=== PATIENT | male | born 1945 | race Caucasian/White ===

== ENCOUNTER 2023-10-17 07:00 | Day surgery (SDC) | payer OTHER ==
[2023-10-13 13:17] LABS: Absolute Eosinophils 0.1 K/uL (0-0.5); Absolute Lymphocytes (CBC) 2.4 K/uL (0.7-4.9); Absolute Monocytes 0.5 K/uL (0.1-1.3); Absolute Neutrophil 2.4 K/uL (1.8-8.0); Basophils % 0.8 % (0-1.3); Eosinophils % 2.2 % (0-4.4); Hematocrit 38.8 % (39.6-49.0); Hemoglobin 12.7 g/dL (13.6-17.9); Lymphocytes % 43.7 % (15.3-44.8); MCH 32.3 pg (27.0-35.0); MCHC 32.9 g/dL (32.0-36.0); MCV 98.2 fL (80-100); MPV 7.3 fL (7.6-11.3); Monocytes % 8.7 % (3.3-12.3); Neutrophils % 44.6 % (41.7-73.7); Platelets 224 thou/uL (152-406); RBC Red Blood Cell Count 3.95 M/uL (4.33-5.43); Red Cell Distribution Width 13.8 % (12.1-15.2)
[2023-10-13 13:30] LABS: Anion Gap 9.1 mEq/L (5.0-15.0); PT Prothrombin Time 11.5 SECONDS (9.4-12.5); PTT, Activated Partial Thromb 32.5 SECONDS (24.3-36.9); Potassium 5.1 mEq/L (3.5-5.1); Protime INR 1.03
--- NOTE | 2023-10-13 18:18 | RAD REPORT ---
EXAM DESCRIPTION: Gloriat Pa And Lat (2 Views)10/13/2023 1:16 pm CLINICAL HISTORY: Pre op pending heart catheterization. Diabetes and hypertension COMPARISON: No comparisons TECHNIQUE: PA and lateral views of the chest. FINDINGS: The lungs are clear. No pneumothorax or effusion. The cardiomediastinal contours are unre markable. IMPRESSION: No acute cardiopulmonary process.
--- NOTE | 2023-10-16 17:08 | EKG ---
Test Date: 2023-10-13 Test Time: 12:57:10 Cloth Examiner Hand: MATTHEW MEASUREMENT RESULTS: Intervals: Rate: 46 MO: 184 QRSD: 92 QT: 422 QTc: 369 [place]: P: 30 MO: 184 QRS: 27 T: -18 INTERPRETIVE STATEMENTS: Marked sinus bradycardia Nonspecific T wave abnormality Abnormal ECG No previous ECG available for comparison Electronically Signed On 10-16-23 16:59:41 CDT by Jerry Oconnor
[2023-10-17] MEDS ORDERED: NA CHLORIDE 0.9% 500 ML ONE (07:11)
[2023-10-17] MEDS ORDERED: MIDAZOLAM HCL 2 MG/2 ML INJ ONE (07:17)
[2023-10-17] MEDS ORDERED: LIDOCAINE 1% 20 ML MDV ONE (07:17)
[2023-10-17] MEDS ORDERED: HEPA 1000U/500MLS 2,000 UNIT/1,000 ML BAG IV ONE (07:17)
[2023-10-17] MEDS ORDERED: ATROPINE SULF 1 MG/10 ML SYR IV ONE (07:18)
[2023-10-17] MEDS ORDERED: FENTANYL CITR 100 MCG/2 ML ONE (07:18)
[2023-10-17] MEDS ORDERED: HEPARIN 10,000 UNIT/10 ML VIAL IV ONE (07:18)
[2023-10-17] MEDS ORDERED: HEPARIN 5000 UNIT/ML 1 ML VIAL ONE (07:18)
[2023-10-17] MEDS ORDERED: TICAGRELOR 90 MG TABLET PO ONE (07:18)
[2023-10-17] MEDS ORDERED: ASPIRIN 325 MG TAB ONE (07:19)
[2023-10-17] MEDS ORDERED: CLOPIDOGREL 75 MG TABLET ONE ×2 (07:19→11:16)
[2023-10-17 07:23] VITALS: TEMP 97.5
[2023-10-17 09:35] VITALS: O2SAT 100
[2023-10-17] MEDS: CLOPIDOGREL 75 MG TABLET PO ONE (10:05)
[2023-10-17 11:19] VITALS: BP 128/54
--- NOTE | 2023-10-17 22:32 | OP ---
Date of Procedure: 10/17/2023 Surgeon: Robert Aragon Procedures Performed: 1.Left heart catheterization. 2.Selective coronary angiogram. 3.PCI of the RPDA with Synergy 2.5 x 8 mm drug-eluting stent. Indication For Procedure: Unstable angina with abnormal stress test. Complications: None. Estimated Blood Loss: Less than 50 cc. Anesthesia: Sedation time is 30 minutes with 1 of Versed and 25 fentanyl. Access: Right radial, closed by TR band. Description Of Procedure: After risks, benefits, and alternatives were explained to the patient, the patient agreed to proceed with procedure and signed informed consent. The patient was brought back to the coreroom foundry laborer, prepped and draped in sterile fashion. Time-out was performed. Sedation was admini stered. Next, right radial access was obtained, [place] 4 catheter was advanced over J-wire to the LV cavity. LVEDP was obtained. Pullback did not show any gradients and the same catheter was used for selective angiogram of the left and right coronary systems. That catheter was later exchanged for a JR4 guide. Heparin was administered. ACT was therapeutic. Runthrough wire into the RCA. I pre-dil ated the RPDA lesion with 2.5 mm NC balloon. Next, 2.5 x 8 mm Synergy drug-eluting stent was placed across the lesion that is postdilated with an NC 3.0 mm balloon. Final angiogram shows ESMER-3 flow. Wires were removed. Catheter was removed over a J-wire. Sheath was removed and TR band applied. T he patient was moved back to recovery in stable condition. Findings: 1.Left main, normal. 2.LAD, diffuse calcified multiple 30% to 40% lesions with a proximal 50% disease followed by mid to distal diffuse 30% to 40% disease. 3.Left circ, mild luminal irregularities. 4.RCA, proximal 30% disease, then mid 30% disease. Distal mild LI. 5.RPDA, proximal 80% disease, status post PCI. Assessment: 1.Significant proximal RPDA disease, status post PCI with Synergy 2.5 x 8 mm drug-eluting stent. 2.Multiple moderate LAD diffuse disease with calcifications. Plan for medical management for that. Plan: 1.Aspirin 81 mg daily for life. 2.Brilinta 180 x1 was given in the coreroom foundry laborer, Plavix 600 x1 to be given before discharge, and continu e Plavix 75 mg daily for 12 months. 3.Continue aggressive medical treatment for CAD. KERRIE/DESHAUN Voice ID: [id number] Report ID: [id number]
== END 2023-10-17 11:30 | disposition home or self-care (01) ==
LOC: CCL 07:00
PROVIDERS: ATTEND Internal Medicine Interventional Cardiology
DX: I25.110 Atherosclerotic heart disease of native coronary artery with unstable angina pectoris (principal); I10 Essential (primary) hypertension; E78.2 Mixed hyperlipidemia; E11.9 Type 2 diabetes mellitus without complications; Z79.84 Long term (current) use of oral hypoglycemic drugs; Z82.49 Family history of ischemic heart disease and other diseases of the circulatory system
CPT/HCPCS: 93005; 85025; 80048; 36415; 85610; 82947; 85347; 85730; 71046; 93458; 76937; C1893; Q9967; C1725; C9600; J1644; J2001; J2250; J3010; J7040; 99152; J0461

== ENCOUNTER 2023-10-17 12:07 | Emergency (ER) | payer OTHER ==
[2023-10-17 12:43] LABS: Absolute Eosinophils 0.1 K/uL (0-0.5); Absolute Lymphocytes (CBC) 3.2 K/uL (0.7-4.9); Absolute Monocytes 0.4 K/uL (0.1-1.3); Absolute Neutrophil 2.7 K/uL (1.8-8.0); Basophils % 0.7 % (0-1.3); Eosinophils % 1.8 % (0-4.4); Hematocrit 36.9 % (39.6-49.0); Hemoglobin 12.2 g/dL (13.6-17.9); Lymphocytes % 49.7 % (15.3-44.8); MCH 32.1 pg (27.0-35.0); MCV 97.1 fL (80-100); MPV 7.3 fL (7.6-11.3); Monocytes % 6.7 % (3.3-12.3); Neutrophils % 41.1 % (41.7-73.7); Platelets 213 thou/uL (152-406); Red Cell Distribution Width 13.6 % (12.1-15.2)
[2023-10-17 12:46] LABS: PT Prothrombin Time 12.4 SECONDS (9.4-12.5); Protime INR 1.11
[2023-10-17 13:01] LABS: ALT/SGPT 19 U/L (16-61); Albumin 3.5 g/dL (3.4-5.0); Albumin/Globulin Ratio 1.1 (1.1-1.8); Alkaline Phosphatase 50 U/L (45-117); BUN Blood Urea Nitrogen 21 mg/dL (7-18); Bicarbonate 23 mEq/L (21-32); Bilirubin Direct 0.2 mg/dL (0-0.2); Bilirubin Indirect, Calculated 0.4 mg/dL (0.2-0.8); Bilirubin Total 0.6 mg/dL (0.2-1.0); Globulin 3.1 g/dL (2.3-3.5); Glomerular Filtration Rate 62 ml/min (=/>90); Glucose Level 196 mg/dL (74-106); Magnesium 1.9 mg/dL (1.6-2.4); NT PRO-BNP 298 pg/mL (<450); Protein, Total 6.6 g/dL (6.4-8.2); Sodium Level 139 mEq/L (136-145); Troponin High Sensitivity 9.8 pg/mL (<58.9)
[2023-10-17 13:04] LABS: AST/SGOT < 10 U/L (15-37)
--- NOTE | 2023-10-17 17:04 | EKG ---
Test Date: 2023-10-17 Test Time: 12:16:46 Counseling Case Manager: PH MEASUREMENT RESULTS: Intervals: Rate: 47 [place]: 184 QRSD: 94 QT: 428 QTc: 378 [place]: P: 42 [place]: 184 QRS: 9 T: 38 INTERPRETIVE STATEMENTS: Marked sinus bradycardia Nonspecific T wave abnormality Abnormal ECG Compared to ECG 10/13/2023 12:57:10 No significant changes Electronically Signed On 10-17-23 17:04:19 CDT by Jerry Oconnor
--- NOTE | 2023-10-17 17:11 | EDPHYS ---
Physician Documentation [facility] Name: Nahid Shepard Age: 78 yrs Sex: Male : 1945 Arrival Date: 10/17/2023 Time: 12:07 Bed 15 Private MD: ED Physician Tone Alvarado HPI: 10/16 13:41 This 78 yrs old Male presents to ER via Wheelchair with complaints of Weakness. marilia Historical: - Allergies: 12:28 No Known Allergies; ph - Immunization history:: Adult Immunizations unknown. - Infectious Disease History:: Denies. - Social history:: Smoking status: unknown. ROS: 13:42 Constitutional: Negative for fever, chills, and weight loss, Eyes: Negative for injury, marilia pain, redness, and discharge, ENT: Negative for injury, pain, and discharge, Neck: Negative for injury, pain, and swelling, Cardiovascular: Negative for chest pain, palpitations, and edema, Respiratory: Negative for shortness of breath, cough, wheezing, and pleuritic chest pain, Abdomen/GI: Negative for abdominal pain, nausea, vomiting, diarrhea, and constipation, Back: Negative for injury and pain, : Negative for injury, bleeding, discharge, and swelling, MS/Extremity: Negative for injury and deformity, Skin: Negative for injury, rash, and discoloration, Psych: Negative for depression, anxiety, suicide ideation, homicidal ideation, and hallucinations, Allergy/Immunology: Negative for hives, rash, and allergies, Endocrine: Negative for neck swelling, polydipsia, polyuria, polyphagia, and marked weight changes, Hematologic/Lymphatic: Negative for swollen nodes, abnormal bleeding, and unusual bruising, 13:42 Abdomen/GI: Positive for nausea, 13:42 Neuro: Positive for weakness, Exam: 13:42 Constitutional: This is a well developed, well nourished patient who is awake, alert, marilia and in no acute distress. Head/Face: Normocephalic, atraumatic. Eyes: Pupils equal round and reactive to light, extra-ocular motions intact. Lids and lashes normal. Conjunctiva and sclera are non-icteric and not injected. Cornea within normal limits. Periorbital areas with no swelling, redness, or edema. ENT: Nares patent. No nasal discharge, no septal abnormalities noted. Tympanic membranes are normal and external auditory canals are clear. Oropharynx with no redness, swelling, or masses, exudates, or evidence of obstruction, uvula midline. Mucous membranes moist. Neck: Trachea midline, no thyromegaly or masses palpated, and no cervical lymphadenopathy. Supple, full range of motion without nuchal rigidity, or vertebral point tenderness. No Meningismus. Chest/axilla: Normal chest wall appearance and motion. Nontender with no deformity. No lesions are appreciated. Cardiovascular: Regular rate and rhythm with a normal S1 and S2. No gallops, murmurs, or rubs. Normal PMI, no JVD. No pulse deficits. Respiratory: Lungs have equal breath sounds bilaterally, clear to auscultation and percussion. No rales, rhonchi or wheezes noted. No increased work of breathing, no retractions or nasal flaring. Abdomen/GI: Soft, non-tender, with normal bowel sounds. No distension or tympany. No guarding or rebound. No evidence of tenderness throughout. Back: No spinal tenderness. No costovertebral tenderness. Full range of motion. Male : Normal genitalia with no discharge or lesions. Skin: Warm, dry with normal turgor. Normal color with no rashes, no lesions, and no evidence of cellulitis. MS/ Extremity: Pulses equal, no cyanosis. Neurovascular intact. Full, normal range of motion. Neuro: Awake and alert, GCS 15, oriented to person, place, time, and situation. Cranial nerves II-XII grossly intact. Motor strength 5/5 in all extremities. Sensory grossly intact. Cerebellar exam normal. Normal gait. Psych: Awake, alert, with orientation to person, place and time. Behavior, mood, and affect are within normal limits. 13:42 ECG was reviewed by the Attending Physician. Vital Signs: 12:12 BP 127 / 58; Pulse 54; Resp 18; Pulse Ox 100% on R/A; Weight 77.11 kg; Height 5 ft. 11 ap3 in. ; 12:56 BP 136 / 55; Pulse 43; Resp 11; Pulse Ox 100% on R/A; ph 12:12 Body Mass Index 23.71 (77.11 kg, 180.34 cm) ap3 NIH Stroke Scale Scores: 13:42 NIHSS Score: 0 marilia MDM: 12:15 Patient medically screened. [facility] 13:43 Differential diagnosis: Nonspecific abd pain, gastritis, cholecystitis, pancreatitis, marilia appendicitis, viral gastroenteritis, gastroenteritis. Differential Diagnosis altered mental status, sepsis, flu. Data reviewed: vital signs, nurses notes, EMS record, lab test result(s), EKG, radiologic studies, plain films. Consideration of Admission/Observation Escalation of care including admission/observation considered. I considered the following discharge prescriptions or medication management in the emergency department Medications were administered in the Emergency Department. See MAR. Independent interpretation of the following test(s) in the Emergency Department EKG: See my EKG interpretation above. Test considered but Not performed: CT: NO CT CHEST. Care significantly affected by the following chronic conditions: Diabetes, Hypertension, SP CATH, 1 STENT, DW DR TRIANA, [place] TO [place]. 10/16 12:40 Order name: Basic Metabolic Panel; Complete Time: 13:41 [facility] 10/16 12:40 Order name: Liver (Hepatic) Function; Complete Time: 13:41 [facility] 10/16 12:40 Order name: Troponin High Sensitivity; Complete Time: 13:41 [facility] 10/16 12:40 Order name: NT PRO-BNP; Complete Time: 13:41 [facility] 10/16 12:40 Order name: Magnesium; Complete Time: 13:41 [facility] 10/16 12:40 Order name: CBC with Automated Diff; Complete Time: 13:41 [facility] 10/16 12:40 Order name: Protime (+INR); Complete Time: 13:41 [facility] 10/16 12:42 Order name: Glucose, Ancillary Testing; Complete Time: 13:41 [facility] 10/16 12:17 Order name: Cardiac monitoring; Complete Time: 12:23 [facility] 10/16 12:17 Order name: EKG - Nurse/Tech; Complete Time: 12:23 [facility] 10/16 12:17 Order name: IV Saline Lock; Complete Time: 12:56 [facility] 10/16 12:17 Order name: Labs collected and sent; Complete Time: 12:56 [facility] 10/16 12:17 Order name: O2 Per Protocol; Complete Time: 12:23 [facility] 10/16 12:17 Order name: O2 Sat Monitoring; Complete Time: 12:23 [facility] 10/16 13:41 Order name: PO challenge: DIET; Complete Time: 13:58 [facility] EC:42 Rate is 47 beats/min. Rhythm is regular. QRS [place] is Normal. DC interval is normal. QRS marilia interval is normal. QT interval is normal. No Q waves. T waves are Normal. No ST changes noted. Clinical impression: Sinus bradycardia. Interpreted by me. Reviewed by me. Administered Medications: 13:59 Not Given (Other Intervention Used): ns 0.9% 1000 ml IV at 125 ml/hr continuous ph Point of Care Testing: Blood Glucose: 12:31 Blood Glucose: 190 mg/dL; ph Ranges: Critical Glucose Levels:Adult <50 mg/dl or >400 mg/dl <40 mg/dl or >180 mg/dl Disposition Summary: 10/17/23 13:48 Discharge Ordered Notes: Location: Home marilia Problem: new marilia Symptoms: have improved marilia Condition: Stable marilia Diagnosis - Weakness marilia - Nausea marilia - Bradycardia, unspecified marilia Followup: marilia - With: Jerry Oconnor MD - When: 2 - 3 days - Reason: Recheck today's complaints, Continuance of care, Re-evaluation by your physician Followup: marilia - With: Private Physician - When: 2 - 3 days - Reason: Recheck today's complaints, Continuance of care, Re-evaluation by your physician Discharge Instructions: - Discharge Summary Sheet marilia - Bradycardia, Adult marilia - Nausea, Adult marilia - Weakness marilia - Weakness, Pyom-ex-Yczk marilia Forms: - Medication Reconciliation Form marilia - Antibiotic Education marilia - Prescription Opioid Use marilia - Patient Portal Instructions marilia - Leadership Thank You Letter [facility] Prescriptions: - ondansetron 4 mg Oral Tablet,disintegrating - take 1 tablet ORAL route every 8-12 hours for 5 days as needed for nausea and marilia vomiting; 20 tablet; Refills: 0, Product Selection Permitted NIH Stroke Scale - NIH Stroke Score Date: 10/17/2023 Time: 13:42 Total Score = 0 10. Dysarthria (speech clarity - read or repeat words) - 0(Normal) 11. Extinction and Inattention (visual/tactile/auditory/spatial/personal) - 0(No abnormality) 1a. Level of Consciousness (LOC) - 0(Alert) 1b. Level of Consciousness (LOC) (Month \T\ Age) - 0(Both) 1c. LOC Commands (Open \T\ Closes Eyes/Moisture Conditioner Operator) - 0(Both) 2. Best Gaze (Lateral Gaze Paresis) - 0(Normal) 3. Visual Field Loss - 0(No visual loss) 4. Facial Palsy - 0(Normal) 5a. Left Arm: Motor (10-second hold) - 0(No drift) 5b. Right Arm: Motor (10-second hold) - 0(No drift) 6a. Left Leg: Motor (5-second hold - always test supine) - 0(No drift) 6b. Right Leg: Motor (5-second hold - always test supine) - 0(No drift) 7. Limb Ataxia (finger/nose \T\ heel/garcia - test with eyes open) - 0(Absent) 8. Sensory Loss (pinprick arms/legs/face) - 0(Normal) 9. Best Language: Aphasia (description/naming/reading) - 0(No aphasia) Initials: marilia Signatures: Dispatcher [employer] Tone Guevara MD MD cha Hall, Patricia, RN RN ph
--- NOTE | 2023-10-17 17:11 | ER ---
Nurse's Notes [facility] Name: Nahid Shepard Age: 78 yrs Sex: Male : 1945 Arrival Date: 10/17/2023 Time: 12:07 Bed 15 Private MD: Diagnosis: Weakness;Nausea;Bradycardia, unspecified Presentation: 10/16 12:12 Chief complaint: Spouse and/or significant other states: the patient had a cardiac ap3 catheter this morning with one stent placed, and after departing the facility the patient started feeling hot, sweaty, weak and nauseated. Patient reports "they gave me 8 of those Plavix pills before I left.". Coronavirus screen: At this time, the client does not indicate any symptoms associated with coronavirus-19. Ebola Screen: No symptoms or risks identified at this time. Risk Assessment: Do you want to hurt yourself or someone else? Patient reports no desire to harm self or others. Onset of symptoms was October 17, 2023. 12:12 Method Of Arrival: Wheelchair ap3 12:12 Acuity: MANUELA 2 ap3 12:27 Initial Sepsis Screen: Does the patient meet any 2 criteria? No. Patient's initial ph sepsis screen is negative. Does the patient have a suspected source of infection? No. Patient's initial sepsis screen is negative. Triage Assessment: 12:12 General: Appears distressed, Behavior is calm, cooperative, appropriate for age. Neuro: ap3 Level of Consciousness is awake, alert, obeys commands, Oriented to person, place, time, situation, Reports weakness. Cardiovascular: Patient's skin is warm and dry. with diaphoresis . Respiratory: Airway is patent Respiratory effort is even, unlabored, Respiratory pattern is regular, symmetrical. GI: Reports nausea. Derm: Skin is diaphoretic. Historical: - Allergies: 12:28 No Known Allergies; ph - Immunization history:: Adult Immunizations unknown. - Infectious Disease History:: Denies. - Social history:: Smoking status: unknown. Screenin:27 [facility] ED Fall Risk Assessment (Adult) History of falling in the last 3 months, ph including since admission No falls in past 3 months (0 pts) Confusion or Disorientation No (0 pts) Intoxicated or Sedated No (0 pts) Impaired Gait No (0 pts) Mobility Assist Device Used No (0 pt) Altered Elimination No (0 pt) Score/Fall Risk Level 0 - 2 = Low Risk Oriented to surroundings, Maintained a safe environment, Hourly rounding (assess needs \\T\\ fall precautionary measures) done. Abuse screen: Denies threats or abuse. Denies injuries from another. Nutritional screening: No deficits noted. Tuberculosis screening: No symptoms or risk factors identified. Assessment: 12:26 General: Appears in no apparent distress. uncomfortable, well groomed, Behavior is ph calm, cooperative. Pain: Denies pain. Neuro: Level of Consciousness is awake, alert, obeys commands, Oriented to person, place, time, situation. Cardiovascular: Reports diaphoresis, lightheadedness, nausea, vomiting, Capillary refill < 3 seconds in bilateral fingers Patient's skin is warm and dry. Rhythm is sinus bradycardia. Respiratory: Airway is patent Respiratory effort is even, unlabored. Derm: Skin is pale. Musculoskeletal: Circulation, motion, and sensation intact. Range of motion: intact in all extremities. 14:31 Reassessment: Patient appears in no apparent distress at this time. Patient and/or ph family updated on plan of care and expected duration. Pain level reassessed. Patient is alert, oriented x 3, equal unlabored respirations, skin warm/dry/pink. Patient states feeling better. Patient states symptoms have improved. Vital Signs: 12:12 BP 127 / 58; Pulse 54; Resp 18; Pulse Ox 100% on R/A; Weight 77.11 kg; Height 5 ft. 11 ap3 in. ; 12:56 BP 136 / 55; Pulse 43; Resp 11; Pulse Ox 100% on R/A; ph 12:12 Body Mass Index 23.71 (77.11 kg, 180.34 cm) ap3 Vitals: 12:56 Cardiac Rhythm Assessment Sinus grayson. ph NIH Stroke Scale Scores: 13:42 NIHSS Score: 0 marilia ED Course: 12:08 Patient arrived in ED. mr 12:14 Triage completed. ap3 12:15 Tone Alvarado MD is Attending Physician. marilia 12:16 Arm band placed on left wrist. ap3 12:26 Rose Dasilva RN is Primary Nurse. ph 12:26 EKG done, by ED staff, reviewed by Tone Alvarado MD. ph 12:27 Patient has correct armband on for positive identification. Placed in gown. Bed in low ph position. Call light in reach. Side rails up X2. Client placed on continuous cardiac and pulse oximetry monitoring. NIBP monitoring applied. cardiac monitor technician on. Door closed. Noise minimized. Warm blanket given. Pillow given. 12:36 Initial lab(s) drawn, by me, sent to lab. Inserted saline lock: 20 gauge in left bc6 antecubital area, using aseptic technique. Inserted saline lock: 20 gauge in left antecubital area, using aseptic technique. Blood collected. Flushed with 10 mL NS. 13:47 Jerry Oconnor MD is Referral Physician. [facility] 14:31 No provider procedures requiring assistance completed. IV discontinued, intact, ph bleeding controlled, No redness/swelling at site. Pressure dressing applied. Administered Medications: 13:59 Not Given (Other Intervention Used): ns 0.9% 1000 ml IV at 125 ml/hr continuous ph Medication: 12:27 VIS not applicable for this client. ph Point of Care Testing: Blood Glucose: 12:31 Blood Glucose: 190 mg/dL; ph Ranges: Outcome: 13:48 Discharge ordered by . marilia 14:31 Patient left the ED. eb NIH Stroke Scale - NIH Stroke Score Date: 10/17/2023 Time: 13:42 Total Score = 0 10. Dysarthria (speech clarity - read or repeat words) - 0(Normal) 11. Extinction and Inattention (visual/tactile/auditory/spatial/personal) - 0(No abnormality) 1a. Level of Consciousness (LOC) - 0(Alert) 1b. Level of Consciousness (LOC) (Month \\T\\ Age) - 0(Both) 1c. LOC Commands (Open \\T\\ Closes Eyes/Tire And Tube Repairer) - 0(Both) 2. Best Gaze (Lateral Gaze Paresis) - 0(Normal) 3. Visual Field Loss - 0(No visual loss) 4. Facial Palsy - 0(Normal) 5a. Left Arm: Motor (10-second hold) - 0(No drift) 5b. Right Arm: Motor (10-second hold) - 0(No drift) 6a. Left Leg: Motor (5-second hold - always test supine) - 0(No drift) 6b. Right Leg: Motor (5-second hold - always test supine) - 0(No drift) 7. Limb Ataxia (finger/nose \\T\\ heel/garcia - test with eyes open) - 0(Absent) 8. Sensory Loss (pinprick arms/legs/face) - 0(Normal) 9. Best Language: Aphasia (description/naming/reading) - 0(No aphasia) Initials: marilia Signatures: Tone Alvarado MD MD cha Rivera, Vy, Reg Remi mr DasilvaRose, RN RN Antoinette Herrera RN RN ap3 Yanira Mendes [facility] Corrections: (The following items were deleted from the chart) 12:16 12:12 Chief complaint: Spouse and/or significant other states: the patient had ap3 a cardiac catheter this morning with one stent placed, and after departing the facility the patient started feeling hot, sweaty, weak and nauseated. ap3
[2023-10-18 03:13] VITALS: O2SAT 100
[2023-10-18 03:17] VITALS: BP 136/55
== END 2023-10-17 14:31 | disposition home or self-care (01) ==
LOC: ER 12:07
DX: R53.1 Weakness (principal); R11.0 Nausea; R00.1 Bradycardia, unspecified
CPT/HCPCS: 36415; 80048; 80076; 82947; 83735; 83880; 84484; 85025; 85610; 93005